=== PATIENT | male | born 1970 | race Hispanic/Latino ===

== ENCOUNTER 2021-03-16 15:27 | Outpatient (CLI) | payer BC | END 2021-03-16 15:28 | disposition home or self-care (01) | LOC: CTENTCT 15:27 | PROVIDERS: ATTEND Student in an Organized Health Care Education/Training Program | DX: J34.2 Deviated nasal septum (principal) | CPT/HCPCS: 70486 ==

== ENCOUNTER 2021-05-12 07:12 | Day surgery (SDC) | payer BC ==
[2021-05-07 13:52] VITALS: BMI 36.2
[2021-05-12] MEDS ORDERED: AFRIN NASAL MIST 15 ML BOT ONE ×2 (08:11→08:58)
[2021-05-12] MEDS ORDERED: SUGAMMADEX SODIUM 200 MG/2 ML VIAL ONE (08:55)
[2021-05-12] MEDS ORDERED: Famotidine/PF 20 mg/2ml Vial ONE (08:55)
[2021-05-12] MEDS ORDERED: Fentanyl 100 MCG/2 ML VIAL ONE ×3 (08:55→13:02)
[2021-05-12] MEDS ORDERED: Bacitracin Zinc Ointment 30 gm TUBE ONE (08:58)
[2021-05-12] MEDS ORDERED: Lidocaine 1% w/Epinephrine 1:100K 20 ML VIAL ONE (08:58)
[2021-05-12] MEDS ORDERED: Meperidine HCl/PF 25 MG/ML VIAL ONE (08:58)
[2021-05-12] MEDS ORDERED: EPINEPHrine 1 MG/ML AMP ONE (08:58)
[2021-05-12] MEDS ORDERED: Succinylcholine 200 MG/10 ml SYRINGE FS ONE (09:56)
[2021-05-12] MEDS ORDERED: Ondansetron PF 4 MG/2 ML Vial ONE (09:56)
[2021-05-12] MEDS ORDERED: Metoclopramide HCl 10 MG/2 ML VIAL ONE (09:56)
[2021-05-12] MEDS ORDERED: Lidocaine 1% PF 5 ML VIAL ONE (09:56)
[2021-05-12] MEDS ORDERED: Dexamethasone 20 MG/5 ML VIAL ONE (09:56)
[2021-05-12] MEDS ORDERED: PROPOFOL 200 MG/20 ML VIAL ONE (09:56)
[2021-05-12] MEDS ORDERED: hydrALAZINE 20 MG/ML VIAL ONE (13:37)
[2021-05-12] MEDS ORDERED: Labetalol HCl 100 MG/20 ML VIAL ONE (14:42)
[2021-05-12] MEDS ORDERED: Hydrocodone-Acetamin 15 ML UDCUP ONE (16:21)
== END 2021-05-12 16:30 | disposition home or self-care (01) ==
LOC: SDC 07:12
PROVIDERS: ATTEND Student in an Organized Health Care Education/Training Program
PROC: 09TL0ZZ Resection of Nasal Turbinate, Open Approach (ICD-10-PCS; principal; 2021-05-12)
PROC: 09SM0ZZ Reposition Nasal Septum, Open Approach (ICD-10-PCS; principal; 2021-05-12)
DX: J34.2 Deviated nasal septum (principal); J34.3 Hypertrophy of nasal turbinates; J32.8 Other chronic sinusitis; J33.0 Polyp of nasal cavity; J34.89 Other specified disorders of nose and nasal sinuses; K21.9 Gastro-esophageal reflux disease without esophagitis; Z79.899 Other long term (current) drug therapy; Z88.0 Allergy status to penicillin
CPT/HCPCS: 87070; 87077; 87186; 87205; 88304; 88311; J0171; J0360; J1100; J2175; J2405; J2704; J2765; J3010; Q4122; S0028

== ENCOUNTER 2022-04-14 19:30 | Outpatient (CLI) | payer BC, OTHER | END 2022-04-14 19:31 | disposition home or self-care (01) | LOC: SLEEPLAB 19:30 | PROVIDERS: ATTEND Nurse Practitioner Family | DX: G47.33 Obstructive sleep apnea (adult) (pediatric) (principal) | CPT/HCPCS: 95810 ==

== ENCOUNTER 2022-05-03 10:53 | Outpatient (CLI) | payer BC | END 2022-05-03 10:54 | disposition home or self-care (01) | LOC: BICRAD 10:53 | PROVIDERS: ATTEND Nurse Practitioner Family | DX: M25.562 Pain in left knee (principal); M25.462 Effusion, left knee ==

== ENCOUNTER 2022-06-04 07:33 | Outpatient (CLI) | payer BC | END 2022-06-04 07:34 | disposition home or self-care (01) | LOC: SCSMRI 07:33 | PROVIDERS: ATTEND Nurse Practitioner Family | DX: M25.562 Pain in left knee (principal); M21.962 Unspecified acquired deformity of left lower leg ==